=== PATIENT | female | born 1955 | race Caucasian/White ===

== ENCOUNTER 2024-04-20 11:50 | Inpatient (IN) | payer MEDICARE, MEDICAID ==
[~2024-04-20] VITALS: Ht 167.6 cm; Wt 47.3 kg
[2024-04-20 12:20] LABS: BASOPHILS % (AUTO) 0.8 % (0.0-2.0); EOSINOPHILS % (AUTO) 2.9 % (1.0-6.0); HEMATOCRIT 34.8 % (36-46); HEMOGLOBIN 11.3 g/dL (12.0-16.0); LYMPHOCYTES # (AUTO) 1.3 K/uL (1.0-4.8); LYMPHOCYTES % (AUTO) 24.7 % (22.0-44.0); MEAN CORPUSCULAR HEMOGLOBIN 30.6 pg (26.0-34.0); MEAN CORPUSCULAR HGB CONC 32.4 G/dL (31.0-37.0); MEAN CORPUSCULAR VOLUME 95 fL (80-100); MONOCYTES # (AUTO) 0.4 K/uL (0.1-1.0); MONOCYTES % (AUTO) 6.9 % (2.0-9.0); NEUTROPHILS # (AUTO) 3.4 K/uL (1.8-7.7); NEUTROPHILS % (AUTO) 64.7 % (40.0-70.0); PLATELET COUNT (AUTO) 332 K/uL (150-450); RED BLOOD CELL COUNT(AUTO) 3.68 MIL/uL (4.00-5.20); RED CELL DISTRIBUTION WIDTH 13.4 % (11.5-14.5); WHITE BLOOD COUNT (AUTO) 5.2 K/uL (4.5-11.0)
[2024-04-20] MEDS ORDERED: ACET-2163 PO (13:17)
[2024-04-20 13:18] LABS: ALCOHOL, BLOOD (SERUM) < 3 mg/dL (0-10)
[2024-04-20] MEDS ORDERED: CHOL100062 PO (13:19)
[2024-04-20] MEDS ORDERED: DIVA125C20 PO (13:19)
[2024-04-20] MEDS ORDERED: MELA3TAB89 PO (13:19)
[2024-04-20] MEDS ORDERED: DONE-51 PO (13:19)
[2024-04-20 13:26] LABS: ANION GAP 7 mmol/L (8-16); CALCIUM, TOTAL 8.8 mg/dL (8.8-10.5); CARBON DIOXIDE 31 mmol/L (22-29); CHLORIDE 107 mmol/L (98-107); CREATININE 0.57 mg/dL (0.60-1.30); GLOMERULAR FILTR. RATE CALC > 60 mL/min (>60); GLUCOSE,RANDOM 110 mg/dL (70-110); SODIUM SERUM 145 mmol/L (136-145); UREA NITROGEN, BLOOD 21 mg/dL (7-18)
[2024-04-20] MEDS: LORazepam 2 MG/ML VIAL IM ONE (13:26)
[2024-04-20] MEDS: DiphenhydrAMINE HCL 50 MG/ML VIAL IM ONE (13:27)
[2024-04-20] MEDS: HALOPERIDOL LACTATE 5 MG/ML VIAL IM ONE (13:27)
[2024-04-20] MEDS ORDERED: ZOLPIDEM TARTRATE 10 MG TABLET PO PRN (13:30)
[2024-04-20] MEDS ORDERED: HALOPERIDOL 5 MG TABLET PO PRN (13:30)
[2024-04-20] MEDS ORDERED: LORazepam 2 MG TABLET PO PRN (13:30)
[2024-04-20 13:33] LABS: ALANINE AMINOTRANSFERASE 21 U/L (12-78); ALKALINE PHOSPHATASE 100 U/L (46-116); ASPARTATE AMINOTRANSFERASE 24 U/L (15-37); BILIRUBIN,TOTAL 0.3 mg/dL (0.1-1.0); TOTAL PROTEIN, SERUM 6.6 g/dL (6.4-8.2)
[2024-04-20 15:16] LABS: COVID AG,FIA SOURCE NASAL SWAB
[2024-04-20 15:21] LABS: APPEARANCE,URINE HAZY (CLEAR); BILIRUBIN,URINE NEGATIVE (NEGATIVE); COLOR,URINE LIGHT YELLOW (YELLOW); GLUCOSE, URINE (UA) NEGATIVE (NEGATIVE); KETONES,URINE NEGATIVE (NEGATIVE); LEUKOCYTE ESTERASE ,URINE NEGATIVE (NEGATIVE); NITRATE,URINE NEGATIVE (NEGATIVE); OCCULT BLOOD,URINE SMALL (NEGATIVE); PH,URINE 7.5 (5.0-8.0); PH,URINE DRUG SCREEN 7.5 (5.0-8.0); PROTEIN,URINE NEGATIVE (NEGATIVE); SPECIFIC GRAVITIY, URINE 1.012 (1.003-1.030); UROBILINOGEN,URINE <=1.0 mg/dL (<=1.0)
[2024-04-20 15:31] LABS: ALCOHOL, URINE DRUG SCREEN NEGATIVE (NEGATIVE); AMPHET/METH SCREEN,URINE NEGATIVE (NEGATIVE); BARBITURATE SCREEN, URINE NEGATIVE (NEGATIVE); BENZODIAZEPINES SCREEN,URINE NEGATIVE (NEGATIVE); CANNABINOID SCREEN,URINE NEGATIVE (NEGATIVE); COCAINE SCREEN,URINE NEGATIVE (NEGATIVE); METHADONE SCREEN, URINE NEGATIVE (NEGATIVE); OPIATE SCREEN,URINE NEGATIVE (NEGATIVE); PHENCYCLIDINE SCREEN,URINE NEGATIVE (NEGATIVE)
[2024-04-20 15:40] LABS: BACTERIA,URINE Few /HPF (None Seen); SQUAMOUS EPITHELIAL CELL,UR Few /LPF (None Seen); WBC,URINE 0-2 /HPF (0-5)
[2024-04-20 15:48] LABS: SARS-COV2 (COVID) ANTIGEN,FIA Negative (Negative)
[2024-04-20] MEDS ORDERED: OLANZapine 5 MG RAPDIS TABLET PO PRN (16:45)
[2024-04-21] MEDS: LORazepam 2 MG/ML VIAL IM ONE (05:20)
[2024-04-21] MEDS: DiphenhydrAMINE HCL 50 MG/ML VIAL IM ONE (05:21)
[2024-04-21] MEDS: HALOPERIDOL LACTATE 5 MG/ML VIAL IM ONE (05:22)
[2024-04-21 07:29] LABS: HEMOGLOBIN A1C 5.4 % (3.8-5.6)
[2024-04-21 07:44] LABS: CHOL/HDL RATIO 2.6 (3.9-5.7)
[2024-04-21] MEDS ORDERED: GuaiFENesin/D-METHORPHAN [SUGAR-FREE] 200-20MG/10 ML SYRUP UDCUP PO PRN (17:15)
[2024-04-21] MEDS ORDERED: BREXPIPRAZOLE 0.25 MG TABLET PO PRN (17:15)
[2024-04-21] MEDS ORDERED: ACETAMINOPHEN 325 MG TABLET PO PRN (17:15)
[2024-04-21] MEDS ORDERED: LOPERAMIDE HCL 2 MG CAPSULE PO PRN (17:15)
[2024-04-21] MEDS ORDERED: PROMETHAZINE HCL 25 MG TABLET PO PRN (17:15)
[2024-04-21] MEDS ORDERED: MAG HYDROX/ALUMINUM HYD/SIMETH ES 30 ML SUSPENSION UDCUP PO PRN (17:15)
[2024-04-21] MEDS ORDERED: HydrOXYzine PAMOATE 50 MG CAPSULE PO PRN (17:15)
[2024-04-21] MEDS ORDERED: TUBERCULIN, PURIFIED PROTEIN DERIVATIVE 5 TU/0.1 ML SYRINGE ID ONE (17:15)
[2024-04-21] MEDS ORDERED: MAGNESIUM HYDROXIDE SUSPENSION 30 ML UDCUP PO PRN (17:15)
[2024-04-21 18:34] VITALS: O2SAT 97
[2024-04-21] MEDS: DIVALPROEX SODIUM 500 MG ER TABLET PO SCH (21:00)
[2024-04-21] MEDS: MELATONIN 5 MG TABLET PO SCH (21:00)
[2024-04-21] MEDS: THIAMINE 100 MG TABLET PO SCH (21:00)
[2024-04-21] MEDS: BREXPIPRAZOLE 0.25 MG TABLET PO SCH (21:00)
[2024-04-21 23:30] VITALS: BP 136/61; PULSE 97; RESP 18; TEMP 97.8; O2SAT 97
[2024-04-22] MEDS: LORazepam 2 MG/ML VIAL IM ONE (00:27)
[2024-04-22] MEDS: HALOPERIDOL LACTATE 5 MG/ML VIAL IM ONE (00:32)
[2024-04-22] MEDS: DiphenhydrAMINE HCL 50 MG/ML VIAL IM ONE (00:33)
[2024-04-22] MEDS: ZOLPIDEM TARTRATE 10 MG TABLET PO PRN (00:35)
[2024-04-22] MEDS: LORazepam 2 MG TABLET PO PRN (00:35)
[2024-04-22 08:46] LABS: HEMOGLOBIN A1C 5.1 % (3.8-5.6)
[2024-04-22] MEDS: FOLIC ACID 1 MG TABLET PO SCH (08:49)
[2024-04-22] MEDS: MULTIVITAMINS WITH MINERALS, THERAPEUTIC TABLET PO SCH (08:49)
[2024-04-22 09:02] VITALS: BP 129/63; PULSE 81; RESP 17; TEMP 98.7; O2SAT 97
[2024-04-22 09:11] LABS: FREE T4 (FREE THYROXINE) 1.03 ng/dL (0.76-1.46); THYROID STIMULATING HORMONE 4.62 uIU/mL (0.36-3.74)
[2024-04-22] MEDS ORDERED: QUEtiapine FUMARATE 25 MG TABLET PO PRN (09:45)
[2024-04-22] MEDS ORDERED: INFLUENZA VIRUS VACCINE TVS (6MO+) 2024-25/PF 45 MCG/0.5 ML SYRINGE IM. ONE (10:45)
[2024-04-22] MEDS: QUEtiapine FUMARATE 25 MG TABLET PO SCH ×2 (12:31→21:00)
[2024-04-22 20:52] VITALS: RESP 17
[2024-04-23 09:19] VITALS: RESP 18
[2024-04-23 20:09] VITALS: BP 142/71; PULSE 92; RESP 18; TEMP 98.2; O2SAT 95
[2024-04-24 08:19] VITALS: BP 125/75; PULSE 77; RESP 16; TEMP 97.1; O2SAT 96
[2024-04-24 20:20] VITALS: BP 117/76; PULSE 87; RESP 18; TEMP 98
[2024-04-25 08:18] VITALS: BP 103/60; PULSE 83; RESP 17; TEMP 97.5; O2SAT 93
[2024-04-25] MEDS: LORazepam 0.5 MG TABLET PO SCH (16:32)
[2024-04-25 20:15] VITALS: BP 117/64; PULSE 77; RESP 17; TEMP 98.4; O2SAT 95
[2024-04-25] MEDS: VALPROIC ACID 250 MG/5 ML SOLUTION UDCUP PO SCH (20:36)
[2024-04-26 08:17] VITALS: BP 114/64; PULSE 66; RESP 17; TEMP 97.9; O2SAT 96
[2024-04-26 21:41] VITALS: BP 110/60; PULSE 68; RESP 18; TEMP 97.5; O2SAT 98
[2024-04-27 08:28] VITALS: BP 132/74; PULSE 80; RESP 16; TEMP 96.8; O2SAT 95
[2024-04-27] MEDS: MODAFINIL 100 MG TABLET PO SCH (09:16)
[2024-04-27 20:09] VITALS: BP 137/68; PULSE 97; RESP 16; TEMP 97.1; O2SAT 96
[2024-04-27] MEDS ORDERED: LORA-999 PO (22:52)
[2024-04-27] MEDS ORDERED: QUET25TA36 PO (22:52)
[2024-04-27] MEDS ORDERED: MODA100T65 PO (22:52)
[2024-04-27] MEDS ORDERED: MELA5TAB40 PO (22:52)
[2024-04-27] MEDS ORDERED: VALP250S23 PO (22:52)
[2024-04-28 08:16] VITALS: BP 115/66; PULSE 86; RESP 16; TEMP 97.5; O2SAT 96
== END 2024-04-28 12:56 | disposition home or self-care (01) | DRG 885 ==
LOC: EMS 11:50 → B2X 04-21 23:37
PROVIDERS: ADMIT Psychiatry & Neurology Psychiatry; ATTEND Psychiatry & Neurology Psychiatry
PROC: GZHZZZZ Group Psychotherapy (ICD-10-PCS; principal; 2024-04-21)
PROC: GZ56ZZZ Individual Psychotherapy, Supportive (ICD-10-PCS; 2024-04-21)
PROC: GZ58ZZZ Individual Psychotherapy, Cognitive-Behavioral (ICD-10-PCS; 2024-04-21)
DX: F25.0 Schizoaffective disorder, bipolar type (principal); F02.82 Dementia in other diseases classified elsewhere, unspecified severity, with psychotic disturbance; M19.90 Unspecified osteoarthritis, unspecified site; E03.9 Hypothyroidism, unspecified; K59.00 Constipation, unspecified; Z20.822 Contact with and (suspected) exposure to COVID-19; G47.00 Insomnia, unspecified; Z53.20 Procedure and treatment not carried out because of patient's decision for unspecified reasons; Z55.9 Problems related to education and literacy, unspecified; Z59.9 Problem related to housing and economic circumstances, unspecified; Z63.9 Problem related to primary support group, unspecified; Z65.3 Problems related to other legal circumstances; Z78.1 Physical restraint status; Z81.8 Family history of other mental and behavioral disorders; Z82.0 Family history of epilepsy and other diseases of the nervous system; Z91.199 Patient's noncompliance with other medical treatment and regimen due to unspecified reason
CPT/HCPCS: 80048; 80061; 80076; 80164; 80307; 81001; 83036; 84439; 84443; 85025; 86592; 87081; 87481; 90686; 99285; G0480; J1200; J1630; J2060